=== PATIENT | female | born 1950 | race Caucasian/White ===

== ENCOUNTER 2019-07-27 13:36 | Outpatient (CLI) | payer MEDICARE, SELFPAY ==
--- NOTE | ~2019-07-27 | CT_ITS ---
EXAMINATION: CT abdomen pelvis w con EXAM DATE: 07/27/2019 14:10 INDICATION: Upper abdominal pain. TECHNIQUE: Spiral CT of the abdomen and pelvis was performed following intravenous injection of 100 m L Omnipaque 350. Axial, coronal and sagittal images were reviewed. The dose-length product (DLP) fo r this examination was 1507.94 mGy-cm. The exposure was tailored according to patient size (auto mA exposure control), and iterative reconstruction (ASIR) was used as additional dose reduction techniqu e. There is no prior study for comparison. FINDINGS: The liver, spleen, adrenal glands and pancreas are unremarkable. There are cholecystectomy clips. Portal and splenic veins are patent. Kidneys enhance symmetrically. There is no hydronephr osis. The uterus is not identified and has likely been surgically resected. The bladder is unremar kable. There is no retroperitoneal or pelvic lymphadenopathy. The appendix is normal. Gastric banding device. There is expected amount of colonic stool. No augustina e intraperitoneal gas. The heart is normal in size. There are no pericardial or pleural effusions. The lung bases are unremarkable. Lumbar fusion L4-S1. There is left iliac bone harvest site. There are no osteoblastic or osteolytic lesions identified. IMPRESSION: 1. No acute intra-abdominal findings. Reviewed, dictated and finalized at location G.
[2019-07-27 14:07] LABS: Estimated Glomerular Filt Rate > 60
== END 2019-07-27 13:37 | disposition home or self-care (01) ==
PROVIDERS: PCP Family Medicine; Visit Provider Family Medicine
DX: R10.10 Upper abdominal pain, unspecified (principal)
CPT/HCPCS: 36415; 74177; Q9967

== ENCOUNTER 2021-03-15 13:10 | Outpatient (CLI) | payer MEDICARE, SELFPAY ==
--- NOTE | 2021-03-19 12:54 | WPDHOLTEREM ---
Holter/Event Monitor Holter/Event Monitor Date of procedure: 03/15/21 Holter/Event Procedure: 24 Hr Holter Monitor Indications: Palpitations Conclusion: 1. 24 hour holter monitor on 03/15/21. 2. Predominant rhythm is sinus rhythm. HR range 52-112 bpm; average HR 66 bpm. 3. There are 34 premature supraventricular complexes and 6 supraventricular couplets. No supraventricular tachycardia. 4. There are 6 premature ventricular complexes, 5 ventricular couplets and 1 ventricular triplet. There are 3 episodes of ventricular tachycardia, fastest at 255 bpm and longest lasting 8 beats. 5. No sinoatrial or atrioventricular blocks. No significant pauses greater than 2 seconds. 6. Patient reports symptoms of pounding heart, shortness of breath which demonstrate sinus rhythm, HR range 63-85 bpm.
== END 2021-03-15 13:11 | disposition home or self-care (01) ==
LOC: ANHCARD 13:13
PROVIDERS: PCP Family Medicine; Visit Provider Physician Assistant
DX: R00.2 Palpitations (principal)
CPT/HCPCS: 36415; 80053; 83036; 85025; 93225; 93226

== ENCOUNTER 2021-03-15 14:27 | Outpatient (CLI) | payer MEDICARE, SELFPAY ==
[2021-03-15 14:53] LABS: Basophils Percent Auto 0.2 % (0.2-1.2); Eosinophils Absolute Auto 0.2 K/mm3 (0-0.3); Hematocrit 39.8 % (37.0-47.0); Hemoglobin 12.5 g/dL (12.0-15.0); Immature Granulocyte Absolute 0.06 K/mm3 (0.00-0.031); Immature Granulocyte Percent A 0.6 % (0-0.5); Lymphocytes Absolute Auto 1.61 K/mm3 (0.9-3.2); Lymphocytes Percent Auto 17.3 % (18.3-44.2); Mean Corpuscular HGB Conc 31.4 g/dl (32-36); Mean Corpuscular Hemoglobin 28.6 pg (26-34); Mean Corpuscular Volume 91.1 fl (80-100); Mean Platelet Volume 9.9 fl (7.4-10.4); Monocytes Absolute Auto 0.4 K/mm3 (0.1-0.6); Monocytes Percent Auto 4.4 % (2.6-8.5); Neutrophils Percent Auto 75.5 % (45.5-73.1); Platelet Count Result 230 k/mm3 (150-375); Red Blood Count 4.37 M/mm3 (4.2-5.4); Red Cell Distribution Width 14.3 % (11.5-14.5); White Blood Count 9.3 K/mm3 (4.5-10.0)
[2021-03-15 15:02] LABS: Alanine Aminotransferase 15 U/L (4-35); Albumin Level 4.5 g/dL (3.5-5.1); Alkaline Phosphatase 111 U/L (38-126); Anion Gap 7 mmol/L (8-16); Aspartate Amino Transferase 19 U/L (14-36); Bilirubin,Total 0.3 mg/dL (0.2-1.3); Blood Urea Nitrogen 15 mg/dL (7-17); Calcium 9.4 mg/dL (8.4-10.2); Carbon Dioxide 32 mmol/L (22-30); Chloride 100 mmol/L (98-107); Estimated Glomerular Filt Rate > 60; Glucose 125 mg/dL (65-110); Potassium 4.1 mmol/L (3.4-5.0); Sodium 139 mmol/L (137-145)
[2021-03-15 15:43] LABS: Hemoglobin A1C 5.3 % (<5.7)
== END 2021-03-15 14:28 | disposition home or self-care (01) ==
PROVIDERS: PCP Family Medicine; Visit Provider Physician Assistant
DX: D72.829 Elevated white blood cell count, unspecified (principal); R73.09 Other abnormal glucose
CPT/HCPCS: 36415; 80053; 83036; 85025

== ENCOUNTER 2021-03-18 15:40 | Outpatient (CLI) | payer MEDICARE, SELFPAY ==
--- NOTE | ~2021-03-18 | XR_ITS ---
XR chest 2V 03/18/2021 16:05 Indication: Cough. Procedure: 2 view chest Comparison: 08/18/2005 Findings: Cardiomegaly. Prominent right peritracheal soft tissue. No focal air space disease, pulmona ry edema, pleural effusion or suspected pneumothorax. There is a healed right clavicular fracture. No acute osseous abnormality. Impression: 1: Prominent right paratracheal soft tissue. Cannot exclude lymphadenopathy. Recommend correlation [facility] contrast-enhanced CT chest. 2: Cardiomegaly. Reviewed, dictated and finalized at location B. WORKER Impression: 1: Prominent right paratracheal soft tissue. Cannot exclude lymphadenopathy. Re commend correlation with contrast-enhanced CT chest. 2: Cardiomegaly.
== END 2021-03-18 15:41 | disposition home or self-care (01) ==
PROVIDERS: PCP Family Medicine; Visit Provider Physician Assistant
DX: R05.9 Cough, unspecified (principal); I51.7 Cardiomegaly
CPT/HCPCS: 71046

== ENCOUNTER 2021-03-26 13:57 | Outpatient (CLI) | payer MEDICARE, SELFPAY ==
--- NOTE | ~2021-03-26 | CT_ITS ---
EXAMINATION: CT soft tissue neck chest wo EXAM DATE: 03/26/2021 14:33 INDICATION: R93.89 - Abnormal findings on CXR. SOB, COUGH. Chest x-ray demonstrating wide appearing p aratracheal soft tissue. Lymphadenopathy. TECHNIQUE: Spiral CT of the neck and chest was performed without contrast. Axial, coronal and sagit belem images of the neck were reviewed. Axial, coronal and sagittal images of the chest were reviewed. Coronal maximum intensity pixel images of chest reviewed. The dose-length product (DLP) for this e xamination was 1159.43 mGy-cm. The exposure was tailored according to patient size (auto mA exposure control), and iterative reconstruction (ASIR) was used as additional dose reduction technique. Corre lation is made to chest x-ray 03/18/2021. FINDINGS: NECK: Chest x-ray finding probably caused by tortuous right brachiocephalic artery. There is proxima lly 1.2 cm left thyroid lobe nodule. The submandibular and parotid glands are symmetric. There is no cervical lymphadenopathy. There are no masses identified. The airway is unremarkable. Paraph aryngeal and pre-glottic fat planes are preserved. Limited evaluation of cervical vessels on this n oncontrast study. No carotid bulb arterial sclerosis. The orbits are unremarkable. Visualized sinu ses and mastoid air cells are well aerated. There is cervical spondylosis. CHEST: Small amount of reticulonodular left lower lobe opacities probably postinfectious. No acute ai rspace disease. Mild emphysema. There are no pleural or pericardial effusions. Tracheobronchial tr ee is patent. There is no mediastinal, hilar or axillary lymphadenopathy. There is no pneumothora x. Heart normal in size. No evidence of coronary arterial calcification. Gastroesophageal gastri c banding device. There is thoracic spondylosis without osteoblastic or osteolytic lesions identifie d. IMPRESSION: 1. Small left thyroid lobe nodule. 2. Small amount of left basilar postinfectious residua. 3. Mild emphysema. 4. No lymphadenopathy. Reviewed, dictated and finalized at location G. ONNEL WORKER
== END 2021-03-26 13:58 | disposition home or self-care (01) ==
LOC: ANHIMG 13:59
PROVIDERS: PCP Family Medicine; Visit Provider Physician Assistant
DX: R93.89 Abnormal findings on diagnostic imaging of other specified body structures (principal); J43.9 Emphysema, unspecified
CPT/HCPCS: 70490; 71250

== ENCOUNTER 2021-03-27 09:08 | Outpatient (CLI) | payer MEDICARE, SELFPAY ==
--- NOTE | 2021-03-27 | ECHO_ITS ---
Patient Info Name: Winsome Fleming Age: 70 years : 1950 Gender: Female Ht: 68 in Wt: 294 lbs BSA: 2.60 m2 HR: 74 bpm BP: 174 / 91 mmHg Exam Date: 03/27/2021 9:45 AM Exam Location: [facility] Patient Status: Outpatient Admit Date: 03/27/2021 Staff Ordering Physician: Brad Jade MD Nailer Machine: Vesta Jenkins RDCS Attending Provider: Brad Jade MD Referring Physician: Kalie LUONG; Exam Type: CA echo doppler color flow Study Info Indications - sob abn ekg cardiomegaly Complete two-dimensional, color flow and Doppler transthoracic echocardiogram is performed. Summary 1. Complete two-dimensional, color flow and Doppler transthoracic echocardiogram is performed. 2. Left ventricular chamber dimension is normal. 3. Left ventricular systolic function is normal, estimated at 60-65%. 4. The left ventricular diastolic function is grade I diastolic dysfunction. 5. E/e' 10 is mildly elevated. 6. There is mild aortic valve regurgitation. 7. There is trace tricuspid valve regurgitation. 8. Mild pulmonary hypertension, estimated pulmonary arterial systolic pressure is 42 mmHg. Left Ventricle E/e' 10 is mildly elevated. Left ventricular chamber dimension is normal. Left ventricular systolic function is normal, estimated at 60-65%. The left ventricular diastolic function is grade I diastolic dysfunction. Right Ventricle Right ventricular chamber dimension is normal. Right ventricular systolic function is normal. Left Atria Left atrial chamber dimension is normal. Right Atria Right atrial chamber dimension is normal. Aortic Valve The aortic valve is trileaflet. There is no aortic valve stenosis. There is mild aortic valve regurgitation. Pulmonic Valve There is no pulmonic regurgitation. Mitral Valve There is no mitral valve stenosis. There is no mitral valve regurgitation. Tricuspid Valve There is trace tricuspid valve regurgitation. Mild pulmonary hypertension, estimated pulmonary arterial systolic pressure is 42 mmHg. Pericardium/Pleural There is no pericardial effusion. Inferior Vena Cava Normal inferior vena cava with >50% collapse upon inspiration consistent with normal right atrial pressure, 5 mmHg. Aorta The aortic root size at the sinus of Valsalva is normal. Left Ventricular Outflow Tract Name Value Normal LVOT 2D LVOT Diameter 2.0 cm LVOT Doppler LVOT Peak Gradient 6 mmHg LVOT Mean Gradient 3 mmHg LVOT VTI 24 cm LVOT VTI/AV VTI Ratio 0.7 LVOT Stroke Volume 77 ml LVOT CO 15.0 l/min LVOT CI 5.8 l/min/m2 Pulmonic Valve Name Value Normal PV Doppler PV Peak Gradient
--- NOTE | ~2021-03-27 | NM_ITS ---
EXAMINATION: NM nic stress w perfusion DATE: 03/27/2021 13:01 INDICATION: Abnormal electrocardiogram. Ventricular tachycardia. TECHNIQUE: Rest images were obtained following intravenous administration of 8.2 mCi Tc99m tetrofosmi n (Myoview). The patient was infused intravenously with Lexiscan (regadenoson). Then, 25.5 mCi Tc99m tetrofosmin (Myoview) was administered intravenously, and stress images were obtained. Data was recon structed into short axis and horizontal and vertical long axis SPECT images. Gated SPECT images were also obtained. COMPARISON: Chest CT 03/26/2021 FINDINGS: There is no definite reversible or fixed perfusion abnormality to suggest ischemia or infar ction. There is no segmental wall motion abnormality. Left ventricular ejection fraction measures 6 7%. IMPRESSION: 1. No definite ischemia or infarct. 2. Normal left ventricular ejection fraction measuring 67%. Reviewed, dictated and finalized at location A. BLENDER
--- NOTE | 2021-03-27 09:44 | EST_ITS ---
Patient Info Name: Winsome Fleming Age: 70 years : 1950 Gender: Female Ht: 65 in Wt: 294 lbs BSA: 2.55 m2 HR: 73 bpm BP: 121 / 86 mmHg Heart Rhythm: Sinus Rhythm Exam Date: 03/27/2021 11:42 AM Exam Location: [facility] Stress Patient Status: Outpatient Admit Date: 03/27/2021 Staff Ordering Physician: Brad Jade MD Attending Provider: Brad Jade MD Exercise Technologist: Aida Wheatley CT Exercise Physician: Frederic Benjamin DO Exam Type: CA stress nic w NM Study Info Indications I47.2 - Ventricular tachycardia A regadenoson stress test was performed. Summary 1. 1. Negative lexiscan stress test for ischemic ST changes by ECG criteria. 2. 2. Stable hemodynamics throughout the test. 3. 3. Nuclear scan to follow and will be reported separately. Please correlate with it. 4. 4. Patient informed of the above results. Protocol: Lexiscan Stress ECG Details Stage: REST Duration (min): 1 min : 12 sec HR (bpm): 71 SBP (mmHg): 126 DBP (mmHg): 81 Stage: REST Duration (min): 6 min : 51 sec HR (bpm): 79 SBP (mmHg): 126 DBP (mmHg): 81 Stage: STAGE 1 Duration (min): 0 min : 59 sec HR (bpm): 88 SBP (mmHg): 142 DBP (mmHg): 88 Stage: RECOVERY Duration (min): 1 min : 0 sec HR (bpm): 90 SBP (mmHg): 142 DBP (mmHg): 88 Stage: RECOVERY Duration (min): 2 min : 0 sec HR (bpm): 87 SBP (mmHg): 142 DBP (mmHg): 88 Stage: RECOVERY Duration (min): 3 min : 0 sec HR (bpm): 86 SBP (mmHg): 129 DBP (mmHg): 79 Stage: RECOVERY Duration (min): 3 min : 30 sec HR (bpm): 87 SBP (mmHg): 129 DBP (mmHg): 79 Rest HR: 79 bpm Peak HR: 93 bpm Rest Sys BP: 126 mmHg Peak Sys BP: 142 mmHg Max Pred HR: 152 bpm % Max Pred HR: 61 % Target HR: 129 bpm Max RPP: 13,206 bpm*mmHg Termination Reason: Completed protocol Cardiac Symptoms: Shortness of breath Total Time: 1 min : 0 sec Rest Patterson BP: 81 mmHg Peak Patterson BP: 88 mmHg Total Dose: 0.4 mg Resting ECG Sinus or ectopic atrial rhythm. Stress ECG No ST changes. Arrhythmias None. Report Signatures
== END 2021-03-27 09:09 | disposition home or self-care (01) ==
PROVIDERS: PCP Family Medicine; Visit Provider Family Medicine
DX: I47.2 Ventricular tachycardia (principal); R06.02 Shortness of breath; R94.31 Abnormal electrocardiogram [ECG] [EKG]; I35.1 Nonrheumatic aortic (valve) insufficiency; I27.20 Pulmonary hypertension, unspecified
CPT/HCPCS: 78452; 93017; 93306; A9502; J2785

== ENCOUNTER 2023-02-19 15:16 | Outpatient (CLI) | payer MEDICARE, SELFPAY ==
[2023-02-19 19:07] LABS: Basophils Percent Auto 0.4 % (0.2-1.2); Eosinophils Absolute Auto 0.2 K/mm3 (0-0.3); Eosinophils Percent Auto 1.8 % (0-4.4); Hemoglobin 12.6 g/dL (12.0-15.0); Immature Granulocyte Absolute 0.05 K/mm3 (0.00-0.031); Immature Granulocyte Percent A 0.5 % (0-0.5); Lymphocytes Absolute Auto 1.81 K/mm3 (0.9-3.2); Mean Corpuscular Hemoglobin 27.5 pg (26-34); Mean Corpuscular Volume 91.5 fl (80-100); Monocytes Absolute Auto 0.5 K/mm3 (0.1-0.6); Monocytes Percent Auto 4.6 % (2.6-8.5); Neutrophils Absolute Auto 8.1 K/mm3 (1.3-6.7); Neutrophils Percent Auto 75.7 % (45.5-73.1); Platelet Count Result 259 k/mm3 (150-375); Red Blood Count 4.59 M/mm3 (4.2-5.4); Red Cell Distribution Width 14.8 % (11.5-14.5); White Blood Count 10.6 K/mm3 (4.5-10.0)
[2023-02-19 20:32] LABS: Alanine Aminotransferase 12 U/L (6-35); Albumin Level 4.3 g/dL (3.5-5.1); Alkaline Phosphatase 108 U/L (38-126); Anion Gap 7 mmol/L (8-16); Aspartate Amino Transferase 19 U/L (14-36); Bilirubin,Total 0.6 mg/dL (0.2-1.3); Blood Urea Nitrogen 12 mg/dL (7-17); Calcium 9.2 mg/dL (8.4-10.2); Carbon Dioxide 34 mmol/L (22-30); Chloride 100 mmol/L (98-107); Cholesterol 172 mg/dL (0-200); Estimated Glomerular Filt Rate > 60; Glucose 110 mg/dL (65-110); HDL Direct 41 mg/dL; Sodium 141 mmol/L (137-145); Triglycerides 143 mg/dL (<150)
[2023-02-19 20:43] LABS: LDL Cholesterol Direct 95 mg/dL
[2023-02-19 20:46] LABS: Free T4 Free Thyroxine 1.45 ng/mL (0.78-2.19); Vitamin D 25 Hydroxy 23.3 ng/mL
[2023-02-19 23:58] LABS: Hemoglobin A1C 5.3 % (<5.7)
== END 2023-02-19 15:17 | disposition home or self-care (01) ==
LOC: ANHGOSHLAB 15:18
PROVIDERS: PCP Family Medicine; Visit Provider Family Medicine
DX: E04.1 Nontoxic single thyroid nodule (principal); E55.9 Vitamin D deficiency, unspecified; I10 Essential (primary) hypertension; R00.2 Palpitations; R73.03 Prediabetes; Z13.220 Encounter for screening for lipoid disorders
CPT/HCPCS: 36415; 80053; 80061; 82306; 83036; 84439; 84443; 85025

== ENCOUNTER 2024-07-25 08:49 | Outpatient (CLI) | payer MEDICARE, SELFPAY ==
--- OUTSIDE RECORDS SUMMARY | 2024-07-25 09:20 | XMS_ITS | Continuity of Care Document ---
Author Organization [facility] Address [address] [place] [address] [address] [place] [address] Phone Care Team Providers Care Project Scientist Name Role Phone Stanford Buckley MD Unavailable Unavailable Procedures Procedure Date Office/outpatient Visit, Est Eye Exam, New Patient Advance Directives Directive Yes / No Effective Date File Name No Information Encounters Encounter Description Practice Location Reason(s) For Visit Diagnoses Date Provider Providers Copied on Encounter Office/outpat ient Visit, Est [facility], [address] [place] [address] [address], [place], [place], [id number], [place] tel:[phone] [facility] No Information [address] Marcio Coyne. [address], [address], [place], [place], [id number], [place]. tel:[phone] [facility], [address] [place] [address] [address], [place], [place], [id number], [place] tel:[phone] [facility] No Information [address] [facility] , [address], [place], [address], [place]. tel:[phone] Family History Family Member Type Diagnosis Age At Onset No Information Payers Payer name Insurance type Covered constitution party ID Authoriza tion(s) No Information Social History Type Description Quantity Date Captured Comments Sex Female Smoking Status No Information Chief Complaint And Reason For Visit No Information Reason For Referral Reason For Referral No Information History Of Present Illness Encounter Date Complaint History Of Prese nt Illness No Information Functional Status Date Functional Assessmen t No Information Instructions Date Instruction Additional Infor mation No Information Assessments Type Assessment Date No Information Patient Care Teams Name Effective Dates (start - stop) Status Members No Information
[2024-07-25 12:20] LABS: Alanine Aminotransferase 11 U/L (6-35); Albumin Level 3.9 g/dL (3.5-5.1); Alkaline Phosphatase 94 U/L (38-126); Anion Gap 8 mmol/L (4-12); Aspartate Amino Transferase 20 U/L (14-36); Bilirubin,Total 0.6 mg/dL (0.2-1.3); Blood Urea Nitrogen 15 mg/dL (7-17); Calcium 8.9 mg/dL (8.4-10.2); Carbon Dioxide 34 mmol/L (22-30); Chloride 99 mmol/L (98-107); Cholesterol 169 mg/dL (0-200); Estimated Glomerular Filt Rate > 60; Glucose 111 mg/dL (65-110); HDL Direct 42 mg/dL; Potassium 3.7 mmol/L (3.4-5.0); Sodium 141 mmol/L (137-145); Triglycerides 107 mg/dL (<150)
[2024-07-25 12:36] LABS: Basophils Percent Auto 0.3 % (0.2-1.2); Eosinophils Absolute Auto 0.2 K/mm3 (0-0.3); Eosinophils Percent Auto 2.5 % (0-4.4); Hematocrit 41.4 % (37.0-47.0); Hemoglobin 12.4 g/dL (12.0-15.0); Immature Granulocyte Absolute 0.02 K/mm3 (0.00-0.031); Immature Granulocyte Percent A 0.3 % (0-0.5); Lymphocytes Percent Auto 22.6 % (18.3-44.2); Mean Corpuscular Hemoglobin 28.2 pg (26-34); Mean Corpuscular Volume 94.1 fl (80-100); Mean Platelet Volume 10.4 fl (7.4-10.4); Monocytes Absolute Auto 0.4 K/mm3 (0.1-0.6); Monocytes Percent Auto 5.3 % (2.6-8.5); Neutrophils Absolute Auto 5.2 K/mm3 (1.3-6.7); Platelet Count Result 213 k/mm3 (150-375); Red Cell Distribution Width 14.1 % (11.5-14.5); White Blood Count 7.5 K/mm3 (4.5-10.0)
[2024-07-25 12:41] LABS: LDL Cholesterol Direct 94 mg/dL
[2024-07-25 13:02] LABS: Vitamin D 25 Hydroxy 23.2 ng/mL
[2024-07-25 13:09] LABS: Vitamin B12 > 1000.0 pg/mL (239-931)
[2024-07-25 15:08] LABS: Hemoglobin A1C 5.4 % (<5.7)
== END 2024-07-25 08:50 | disposition home or self-care (01) ==
LOC: ANHGOSHLAB 08:50
PROVIDERS: PCP Family Medicine; Visit Provider Family Medicine
DX: R73.03 Prediabetes (principal); E04.1 Nontoxic single thyroid nodule; I10 Essential (primary) hypertension; D51.9 Vitamin B12 deficiency anemia, unspecified; G57.93 Unspecified mononeuropathy of bilateral lower limbs; F41.9 Anxiety disorder, unspecified; F32.A Depression, unspecified; R73.9 Hyperglycemia, unspecified; R10.10 Upper abdominal pain, unspecified; E55.9 Vitamin D deficiency, unspecified
CPT/HCPCS: 36415; 80053; 80061; 82306; 82607; 83036; 84443; 85025

== ENCOUNTER 2024-10-14 12:34 | Outpatient (CLI) | payer MEDICARE, SELFPAY ==
[2024-10-14 18:37] LABS: Free T4 Free Thyroxine 1.14 ng/dL (0.78-2.19); Vitamin D 25 Hydroxy 21.2 ng/mL
== END 2024-10-14 12:35 | disposition home or self-care (01) ==
LOC: ANHGOSHLAB 12:35
PROVIDERS: PCP Family Medicine; Visit Provider Family Medicine
DX: E55.9 Vitamin D deficiency, unspecified (principal); R53.83 Other fatigue
CPT/HCPCS: 36415; 82306; 84439; 84443

== ENCOUNTER 2025-01-12 11:20 | Outpatient (CLI) | payer MEDICARE, SELFPAY ==
[2025-01-12 17:48] LABS: Free T4 Free Thyroxine 1.07 ng/dL (0.78-2.19)
[2025-01-12 17:52] LABS: Thyroid Stimulating Hormone 5.090 uIU/mL (0.465-4.680)
== END 2025-01-12 11:21 | disposition home or self-care (01) ==
LOC: ANHGOSHLAB 11:21
PROVIDERS: PCP Family Medicine; Visit Provider Family Medicine
DX: E03.9 Hypothyroidism, unspecified (principal)
CPT/HCPCS: 36415; 84439; 84443